=== PATIENT | female | born 1970 | race Caucasian/White ===

== ENCOUNTER 2023-11-26 09:07 | Outpatient (CLI) | payer BC, SELFPAY ==
--- NOTE | ~2023-11-26 | MR_ITS ---
EXAMINATION: MR foot LT wo con DATE: 11/26/2023 10:00 INDICATION: Left foot pain with old fracture of the flexor tendons and lesion at the plantar nerve. TECHNIQUE: Magnetic resonance imaging (MRI) of the left fore/mid foot was performed without intraveno us contrast. Sequences included sagittal T1-weighted FSE, sagittal fluid sensitive FSE STIR, coronal PD-weighted FS FSE, coronal T1-weighted FSE, axial PD-weighted FS FSE, and axial PD-weighted FSE. The marker indicating the site of maximal pain is positioned plantar to the second and third metatarsoph alangeal joints. COMPARISON: None FINDINGS: Bone alignment is normal. There is mild edema-like signal change at the distal moiety of a bipartite first metatarsal tibial sesamoid which could be related to mild osteoarthritis at the first metatarso phalangeal joint or other nonspecific sesamoiditis. Bone marrow signal is otherwise normal throughout . No fracture or osteonecrosis. Additional minimal to mild osteoarthritis at the tarsometatarsal and interphalangeal joints. The Lisfranc ligament complex as well as the collateral ligament complex at t he metatarsophalangeal and interphalangeal joints are normal. The visualized portions of the flexor a nd extensor tendons are normal with no tenosynovitis. The plantar plates at the base of the proximal phalanges are normal. Physiologic amount fluid in the joint spaces. No abnormal fluid collections. Th e intrinsic musculature of the foot appears normal with no atrophy or abnormal signal. Visualized por tion of the plantar aponeurosis is normal. IMPRESSION: 1. Mild increased signal at the distal moiety of a bipartite first metatarsal tibial sesamoid which c ould be due to sesamoiditis or subarticular edema-like signal change related to mild osteoarthritis. 2. Minimal to mild osteoarthritis at a few of the distal tarsal metatarsal and interphalangeal joints . The musculature, tendons and ligaments and the left mid and forefoot are unremarkable. Reviewed, dictated and finalized at location A. IMPRESSION: 1. Mild increased signal at the distal moiety of a bipartite first metatarsal t ibial sesamoid which could be due to sesamoiditis or subarticular edema-like si gnal change related to mild osteoarthritis. 2. Minimal to mild osteoarthritis at a few of the distal tarsal metatarsal and interphalangeal joints. The musculature, tendons and ligaments and the left mid and forefoot are unremarkable.
== END 2023-11-26 09:08 ==
LOC: MICIMG 09:12
PROVIDERS: PCP Internal Medicine; Visit Provider Podiatrist Foot & Ankle Surgery
DX: G57.62 Lesion of plantar nerve, left lower limb (principal); M66.372 Spontaneous rupture of flexor tendons, left ankle and foot; M19.072 Primary osteoarthritis, left ankle and foot
CPT/HCPCS: 73718